=== PATIENT | female | born 1965 | race Caucasian/White ===

== ENCOUNTER 2017-10-21 07:50 | Day surgery (SDC) | payer OTHER ==
[2017-10-21] MEDS ORDERED: Lactated Ringer's 1,000 ML IV ONE (08:20)
[2017-10-21] MEDS ORDERED: Propofol 10 mg/ml Inj (20 ML) ONE (09:24)
[2017-10-21] MEDS ORDERED: Lidocaine 2% MPF (5 ml) Inj ONE (09:24)
[2017-10-21 09:55] VITALS: TEMP 97.3
[2017-10-21 10:14] VITALS: BP 102/59; PULSE 67; RESP 16; O2SAT 100
== END 2017-10-21 10:14 | disposition home or self-care (01) ==
LOC: H.ENDO 07:50
PROVIDERS: ATTEND Internal Medicine Gastroenterology
DX: Z12.11 Encounter for screening for malignant neoplasm of colon (principal); K59.00 Constipation, unspecified; G47.30 Sleep apnea, unspecified; K64.0 First degree hemorrhoids
CPT/HCPCS: 45378; J2704; J7120